=== PATIENT | female | born 1940 | race Caucasian/White ===

== ENCOUNTER 2020-01-20 08:07 | Inpatient (IN) | payer BC ==
[~2020-01-20] VITALS: Ht 162.6 cm; Wt 81.2 kg
[2020-01-20 08:07] VITALS: BP 184/103
[~2020-01-20 08:07] MED LIST: ADULT LOW DOSE81 MG PO; LISINOPRIL10 MG PO; VICODIN OR; VITAMIN E400 UNIT PO
[2020-01-20] MEDS ORDERED: MELOXICAM15 MG PO (08:17)
[2020-01-20] MEDS ORDERED: ZOCOR 20 MG TAB20 M1 PO (08:17)
[2020-01-20 08:52] LABS: HEMATOCRIT 39.9 % (37.0-47.0); HEMOGLOBIN 13.8 gm/dL (12.0-15.0); MCH 32.7 pg (26.0-34.0); MCHC 34.6 g/dL (28.0-37.0); MCV 94.6 fL (80.0-100.0); RBC 4.22 mil/uL (4.20-5.00); RDW 12.9 % (10.5-14.5); WBC 4.7 thou/uL (4.0-11.0)
[2020-01-20 09:07] LABS: ANION GAP 11 mmol/L (7-16); BUN 12 mg/dL (7-18); CALCIUM 8.7 mg/dL (8.5-10.1); CHLORIDE 100 mmol/L (98-107); CO2 24 mmol/L (21-32); CREATININE 0.9 mg/dL (0.6-1.0); GLUCOSE 136 mg/dL (74-106); POTASSIUM 3.7 mmol/L (3.5-5.1); SODIUM 135 mmol/L (136-145)
[2020-01-20 09:13] LABS: ALBUMIN 3.7 g/dL (3.4-5.0); SGOT 21 U/L (15-37); SGPT 14 U/L (30-65); TOTAL BILIRUBIN 0.2 mg/dL (0.2-1.0); TOTAL PROTEIN 7.6 g/dL (6.4-8.2); TROPONIN-I <0.06 ng/mL (<0.06)
[2020-01-20 11:20] VITALS: BP 163/81
[2020-01-20 12:26] LABS: URINE BILIRUBIN NEGATIVE (Negative); URINE BLOOD 1+ (Negative); URINE CLARITY CLOUDY; URINE COLOR YELLOW; URINE GLUCOSE-RANDOM* NEGATIVE (Negative); URINE KETONES NEGATIVE (Negative); URINE LEUKOCYTES-REFLEX NEGATIVE (Negative); URINE NITRITE-REFLEX POSITIVE (Negative); URINE PROTEIN (DIPSTICK) NEGATIVE (Negative); URINE UROBILINOGEN 0.2 E.U./dl (0.2-1.0)
[2020-01-20 12:44] LABS: AMORPHOUS URATES Many /LPF (None Seen); CASTS None Seen /LPF (None Seen); SQUAMOUS 0-3 Few /LPF (0-3); URINE RBC 3-10 Few /HPF (0-2)
[2020-01-20 12:45] LABS: BACTERIA-REFLEX >30 Many /HPF (None Seen); URINE WBC-REFLEX 0-5 Rare /HPF (0-5)
--- NOTE | 2020-01-20 12:45 | NUR ---
PT TO QS [12/17/21] V/S PER ADMIT ORDER
[2020-01-20 15:26] VITALS: BP 145/85
[2020-01-20 16:05] VITALS: BP 155/86
--- NOTE | 2020-01-20 16:29 | EKG ---
[facility] [place] [address] ELECTROCARDIOGRAM REPORT Name: BJ TALBERT Room #: 448-P ADM IN M.R.#: [id number] Admission: 01/20/20 Attend Phys: Fidel Negron MD Discharge: Date of : 44 Report #: [id number] THIS REPORT FOR: cc: Irma Smiley MD, Melanie MD Lundgren,Alvaro Snow MD [facility] ~ THIS REPORT FOR: //name// [facility] ED Test Date: 2020-01-20 Test Time: 08:38:27 Pat Name: BJ TALBERT Department: Room: 448 Gender: F New Accounts Clerk: [facility] : 1940 Requested By: Quyen Vazquez Order Number: [id number] MD: Alvaro Glover Measurements Intervals [place] Rate: 81 P: 19 DE: 220 QRS: -9 QRSD: 87 T: 13 QT: 394 QTc: 458 Interpretive Statements Sinus rhythm Borderline prolonged DE interval Left ventricular hypertrophy Compared to ECG 12/11/2010 07:32:51 No significant changes Electronically Signed On 01-20-2020 16:29:01 CDT by Alvaro Glover [email or web address] <ELECTRONICALLY SIGNED> By: Alvaro Glover MD, [facility] 01/20/20 1629 [id number] [id number] Alvaro Glover MD, [facility] /EPI
[2020-01-20 17:57] VITALS: BP 151/83
--- NOTE | 2020-01-20 19:20 | NUR ---
79YO FEMALE ADMITTED TO 448 BY CART FROM ED. A&OX4. IV INTACT IN R WRIST. DENIES N/V AT THIS TIME THOUGH FEELS DIZZINESS WHEN SHE GETS UP. CALL LIGHT W/I REACH, BED ALARM ON. TOLERATED DINNER/ WATER WELL.
[2020-01-20 23:59] VITALS: BP 93/43
[2020-01-21] VITALS (8 sets, daily range): BP systolic 123–129; BP diastolic 69–93
--- NOTE | 2020-01-21 04:17 | NUR ---
ASSESSMENT COMPLETED. PT IS ALERT AND ORIENTED.PT DENIES PAIN. SHE IS ASSIST X 1 TO THE BSC. PT STILL C/O DIZZINESS HOMERO WHEN CHANGING POSITIONS. DENIES ANY NAUSEA OR VOMITING. NEURO CHECKS COMPLETED AND REMAIN INTACT. NEUROLOGY CONSULT IN COMPUTER.PT CALLS APPROPRIATELY.
[2020-01-21 05:57] LABS: CALCIUM 8.6 mg/dL (8.5-10.1); POTASSIUM 3.6 mmol/L (3.5-5.1)
--- NOTE | 2020-01-21 16:34 | NUR ---
ASSUME PT CARE AT 0700. VSS ON RA. ASSESSMENT COMPLETED. PT IS ALERT AND ORIENTED X4 ABLE TO VOICE HER NEEDS. PT DENIES PAIN. SHE IS ASSIST X 1 TO THE BSC. PT STILL C/O DIZZINESS HOMERO WHEN CHANGING POSITIONS. PHYSICAL THERAPIST WORKED WITH PT AND DID CHRISTEL CLEMENSVEVER WITH PT. DENIES ANY NAUSEA OR VOMITING. NEURO CHECKS COMPLETED AND REMAIN INTACT. NEUROLOGIST CAME AND ORDER FOR MRI. [employer] CALLED AND SAID SINCE IT IS ROUTINE, IT WILL BE DONE ON THURSDAY. DR. PUENTE AWARES AND OK FOR PT TO TO HAVE MRI DONE ON THURSDAY. PT HAS UTI POSITIVE FROM ER. DR. PUENTE PUT PT ON CEFTRIAXON. IV STARTED BUT UNSUCCESSFUL SINCE PT'S VEINS VERY COOKED. PT THINKS SHE DOESN'T HAVE UTI AND REQUESTS TO REPEAT UA. NOTIFIED DR. PUENTE AND OBTAINED ORDER FOR UA. UA OBTAINED AND SENT TO LAB. PT CALLS APPROPRIATELY. FALL PRECAUTION IN PLACE. WILL CONTINUE TO MONITOR.
[2020-01-21 16:41] LABS: URINE BILIRUBIN NEGATIVE (Negative); URINE BLOOD 1+ (Negative); URINE COLOR YELLOW; URINE GLUCOSE-RANDOM* NEGATIVE (Negative); URINE KETONES NEGATIVE (Negative); URINE PROTEIN (DIPSTICK) NEGATIVE (Negative); URINE SPECIFIC GRAVITY <= 1.005 (1.005-1.035); URINE UROBILINOGEN 0.2 E.U./dl (0.2-1.0)
[2020-01-21 16:43] LABS: URINE CLARITY CLOUDY; URINE LEUKOCYTES-REFLEX 3+ (Negative); URINE NITRITE-REFLEX POSITIVE (Negative)
[2020-01-21 16:44] LABS: BACTERIA-REFLEX >30 Many /HPF (None Seen); CRYSTALS None Seen /LPF (None Seen); SQUAMOUS >10 Many /LPF (0-3); URINE RBC 0-2 Rare /HPF (0-2); URINE WBC-REFLEX >25 Many /HPF (0-5)
--- NOTE | 2020-01-22 02:02 | NUR ---
ASSESSMENT COMPLETED. PT ALERT AND ORIENTED. SHE STILLS C/O DIZZINESS WITH ACTIVITY. SHE DENIES ANY NAUSEA OR VOMITING. AFEBRILE. NEURO CHECKS INTACT.
[2020-01-22 02:40] VITALS: BP 113/55
[2020-01-22 05:50] LABS: ABSOLUTE NEUTROPHILS 4.1 thou/uL (1.4-8.2); BASOPHILS 0.3 % (0.0-2.0); HEMATOCRIT 38.9 % (37.0-47.0); HEMOGLOBIN 13.2 gm/dL (12.0-15.0); LYMPHOCYTES 32.1 % (24.0-44.0); MCH 32.6 pg (26.0-34.0); MONOCYTES 6.1 % (1.0-8.0); PLATELET COUNT 199 thou/uL (150-400); POLYS 60.5 % (36.0-66.0); RBC 4.06 mil/uL (4.20-5.00); RDW 13.5 % (10.5-14.5); WBC 6.8 thou/uL (4.0-11.0)
[2020-01-22 06:09] LABS: ALBUMIN 3.1 g/dL (3.4-5.0); CALCIUM 8.7 mg/dL (8.5-10.1); CREATININE 0.9 mg/dL (0.6-1.0); MAGNESIUM 1.9 mg/dL (1.8-2.4); PHOSPHORUS 3.2 mg/dL (2.5-4.9); POTASSIUM 3.8 mmol/L (3.5-5.1); TOTAL BILIRUBIN 0.3 mg/dL (0.2-1.0); TOTAL PROTEIN 6.8 g/dL (6.4-8.2)
[2020-01-22 07:00] VITALS: BP 124/64
[2020-01-22 15:35] VITALS: BP 116/47
[2020-01-22 16:02] VITALS: BP 124/88
[2020-01-22 16:40] LABS: TSH 2.02 uIU/mL (0.358-3.740)
--- NOTE | 2020-01-22 17:29 | NUR ---
PT A&OX4. IV INTACT IN R FA. MRI/MRA WAS COMPLETE TODAY. PT HAD SOME RETENTION TODAY, ORDER TO BLADDER SCAN IF > 400 STAIGHT CATH, SCANNED AND WAS 185 MLS. PT STILL HAS VERTIGO, NO N/V NOTED TODAY. CALL LIGHT W/I REACH, BED ALARM ON.
[2020-01-22 19:42] VITALS: BP 166/76
[2020-01-22 21:54] VITALS: BP 166/76
[2020-01-23 04:27] VITALS: BP 148/69
--- NOTE | 2020-01-23 06:13 | NUR ---
PT AOX4. PT DENIES PAIN AND SOB. PT AMBULATING WITH STANDBY ASSIST TO BEDSIDE COMMODE. PT WITHOUT DIZZINESS UPON STANDING AND TRANSFERRING. PT TOLERATING PO INTAKE OF FLUIDS AND REGULAR DIET. ENCOURAGED PT TO NOTIFY STAFF FOR ALL NEEDS. CALL LIGHT WITHIN REACH, BED ALARM ON, BED IN LOWEST POSITION, WILL CONTINUE TO MONITOR.
[2020-01-23 08:00] VITALS: BP 177/91
[2020-01-23 13:42] VITALS: BP 177/91
--- NOTE | 2020-01-23 13:44 | NUR ---
ASSESSMENT: CM REVIEWED CHART AND MET WITH PATIENT AT THE BEDSIDE. PT IS ALERT AND ORIENTED X4. PTS SON IS ALSO AT THE BEDSIDE. PT WAS ADMITTED DUE TO VERTIGO. PT REPORTS LIVING IN A HOUSE WITH HER ELDERLY MOTHER. PT REPORTS HAVING TWO STEPS TO ENTER WITH NO HANDRAIL. PT REPORTS ONCE INSIDE HER BEDROOM IS ON THE MAIN LEVEL BUT REPORTS SHE DOES HAVE ABOUT 12-14 STEPS FOR LAUNDRY IN THE BASEMENT. PT REPORTS HER CHILDREN CAN HELP HER DO IT IF NEEDED. PT REPORTS THAT SHE HAS A WALKER AT HOME. PT REPORTS SHE HAS HAD [facility] IN THE PAST FOR HOME HEALTH AND PREFERS TO USE THEM AGAIN. CM FAXED REFERRAL TO [facility] WHO STATES THEY CAN ACCEPT HER AT DISCHARGE. PT WANTING TO KNOW ABOUT PRIVATE DUTY SERVICES TO HELP WITH HER MOTHER. CM PROVIDED PATIENT WITH BROCHURES OF [employer]IVATE D[employer]. PT REPORTS NO FURTHER NEEDS FROM [facility].
[2020-01-23 15:30] VITALS: BP 161/79
--- NOTE | 2020-01-23 15:43 | NUR ---
ASSESSED AT START OF SHIFT PT SEEN BY PT AND OT. UP WITH SBA TO THE BSC. SON AT BEDSIDE. PT TO D/C HOME TODAY WITH H/H PAGED DR CONNELL HE STATED WILL REVIEW AND PUT IN ORDERS AWAITING D/C. HOUSE SUP AND CAREER DEVELOPMENT COUNSELOR AWARE. PT DENIES PAIN WILL CONT TO MONITOR.
[2020-01-23] MEDS ORDERED: CEFPODOXIME PR200 M1 PO (16:45)
[2020-01-23] MEDS ORDERED: MECLIZINE HCL25 MG PO (16:46)
[2020-01-23] MEDS ORDERED: EAR DROPS15 ML OTIC (16:47)
== END 2020-01-23 18:00 | disposition home health service (06) | DRG 690 ==
LOC: ER 08:07 → EROBS 11:14 → 4S 11:14
PROVIDERS: Internal Medicine; Student in an Organized Health Care Education/Training Program; ADMIT Hospitalist; ATTEND Hospitalist
DX: N39.0 Urinary tract infection, site not specified (principal); I10 Essential (primary) hypertension; H61.21 Impacted cerumen, right ear; E78.5 Hyperlipidemia, unspecified; R26.0 Ataxic gait; Z90.49 Acquired absence of other specified parts of digestive tract; Z79.82 Long term (current) use of aspirin; Z79.899 Other long term (current) drug therapy
CPT/HCPCS: 10100